=== PATIENT | female | born 1960 | race Native Hawaiian/Other Pacific Islander ===

== ENCOUNTER 2022-05-29 13:03 | Emergency (ER) | payer OTHER ==
[2022-05-29] MEDS ORDERED: DUONEB 0.5-3 MG/3 ml Neb IH ONE ×2 (13:08→13:17)
[2022-05-29] MEDS ORDERED: Ativan 2 MG/1 ML VIAL ONE ×2 (13:11→17:09)
[2022-05-29] MEDS ORDERED: Ativan 2 MG/1 ML VIAL IV ONE ×3 (13:11→17:10)
[2022-05-29 13:24] LABS: Absolute Neutrophil Ct (ANC) 10.14 x10^3/uL (1.4-6.9); Basophil (Absolute #) 0.03 x10^3/uL (0-0.4); Eosinophil (Absolute #) 0 x10^3/uL (0-0.5); Hematocrit 42.3 % (35-47); Hemoglobin 15.3 g/dL (12.0-16.0); Lymphocyte (Absolute #) 0.97 x10^3/uL (1.0-4.6); Lymphocytes % 7.4 % (24.0-44.0); Mean Cell Volume 83.8 fL (78-100); Mean Corpuscular Hemoglobin 30.3 pg (26-32); Mean Corpuscular Hgb Concent. 36.2 g/dL (32-36); Mean Platelet Volume 10.2 fL (7.5-11.0); Monocyte (Absolute #) 1.92 x10^3/uL (0.0-1.3); Monocytes % 14.6 % (0.0-12.0); Neutrophil % 77.3 % (36.0-66.0); Platelet Count 254 x10^3/uL (150-450); Red Blood Count 5.05 x10^6/uL (4.1-5.4); White Blood Count 13.1 x10^3/uL (4.0-10.5)
[2022-05-29 13:29] LABS: A-aADO2 162; ABG HEMOGLOBIN 14.6; ABG POTASSIUM 3.4 (3.5-5.1); ABG SITE RIGHT RADIAL; ARTERIAL BLD GAS O2 SATURATION 99.3 % (95-100); ARTERIAL BLOOD GAS BASE EXCESS -3.6 (-2.0-2.0); ARTERIAL BLOOD GAS FIO2 50 %; ARTERIAL BLOOD GAS PCO2 26 mmHg (35-45); ARTERIAL BLOOD GAS PO2 162 mmHg (75-100); ARTERIAL BLOOD GAS pH 7.46 (7.35-7.45); CARBOXYHEMOGLOBIN 0.8 % THgb (0.0-6.9); HCO3- 18.5 (22-28); HGB O2 SAT 97.4 g/dF (94-100); Methhemoglobin 1.1 % (1.4-1.5)
[2022-05-29] MEDS ORDERED: Sodium Chloride 0.9% 1000 ML 1,000 ML IV STA (13:32)
[2022-05-29 13:34] LABS: Bacteria MANY /HPF (NEGATIVE); Epithelial Cells RARE /HPF (FEW); RBC 26-50 /HPF (0-2); WBC >100 /HPF (0-5)
[2022-05-29] MEDS ORDERED: Sodium Chloride 0.9% 1000 ML 1,000 ML ONE ×2 (13:34→15:57)
[2022-05-29 13:35] LABS: Appearance SLIGHTLY CLOUDY (CLEAR); Bilirubin NEGATIVE (NEGATIVE); Dipstick done @ ? MAIN LAB; Glucose NEGATIVE (NEGATIVE); Ketones SMALL-15 (NEGATIVE); Nitrite NEGATIVE (NEGATIVE); Protein,Urine Dip TRACE (Negative); RBC SMALL Ery/ul (0-5); Specific Gravity 1.025 (1.005-1.025); Urobilinogen 0.2 mg/dL (0-1)
[2022-05-29 13:36] LABS: Urine Cultured Indicated? YES
[2022-05-29 13:45] LABS: Amphetamine,Urine NEGATIVE (NEGATIVE); Barbiturate,Urine NEGATIVE (NEGATIVE); Benzodiazepine,Urine NEGATIVE (NEGATIVE); Cocaine,Urine NEGATIVE (NEGATIVE); Methadone,Urine NEGATIVE (NEGATIVE); Opiate,Urine NEGATIVE (NEGATIVE); PCP,Urine NEGATIVE (NEGATIVE); THC,Urine NEGATIVE (NEGATIVE)
[2022-05-29 13:49] LABS: ALBUMIN 4.3 g/dL (3.5-5.0); ALKALINE PHOSPHATASE 78 U/L (38-126); ANION GAP 16.4 MEQ/L (5-15); BLOOD UREA NITROGEN 19 mg/dL (7-17); CHLORIDE 78 mmol/L (98-107); Calcium 8.7 mg/dL (8.4-10.2); Carbon Dioxide 25 mmol/L (22-30); Creatinine 1 0.87 mg/dL (0.52-1.04); EST GLOMERULAR FILTRATION RATE > 60.0 ML/MIN; Glucose 109 mg/dL (74-106); MAGNESIUM 1.7 mg/dL (1.6-2.3); NT PRO BNP 16700 pg/mL (0-900); Potassium 4.2 mmol/L (3.5-5.1); SGOT/AST 156 U/L (14-36); Total Protein 7.1 g/dL (6.3-8.2)
[2022-05-29 13:53] LABS: SGPT/ALT 60 U/L (0-35)
[2022-05-29 14:00] LABS: SODIUM 116 mmol/L (137-145)
[2022-05-29] MEDS ORDERED: PIPERACILLIN/TAZOBACTAM 3.375 GM in Sodium Chloride 100ML MINI-BAG PLUS 100 ML IV ONE (14:33)
--- NOTE | 2022-05-29 14:33 | XRAY ---
Indication: Status post fall. Unresponsive. Multiple contiguous axial images obtained through the head without contrast. Comparison: None Age-appropriate global atrophy and minimal periventricular degenerative micro-ischemia bilaterally. Incidental physiologic basal ganglia calcifications bilaterally. No acute intracranial hemorrhage, abnormal extra-axial fluid collection, or mass effect. Fourth ventricle is midline without hydrocephalus. Zhu-white matter differentiation preserved. Bony calvarium intact. Visualized paranasal sinuses and mastoid air cells are clear. Impression: Nonacute senile brain.
--- NOTE | 2022-05-29 14:35 | XRAY ---
Indication: Status post fall. Unresponsive. Multiple contiguous axial images obtained through the cervical spine. Sagittal and coronal reformatted images obtained. Comparison: None Axial images negative for acute fracture, suspicious bony lesions, or spinal canal stenosis. Minimal C6-C7 degenerative endplate spurring. Facets are symmetric. Sagittal and coronal reformatted images demonstrates normal alignment. Minimal C6-C7 disc space narrowing. No acute compression fracture, subluxation, or jumped facet. Normal appearing cranial cervical junction. Visualized noncontrasted soft tissues demonstrates mild bilateral carotid calcifications. CT head and CT chest reported separately. Impression: C6-7 C7 degenerative changes. Remaining CT cervical spine is negative.
--- NOTE | 2022-05-29 14:40 | XRAY ---
Indication: Status post fall. Unresponsive. Multiple contiguous axial images obtained through the chest without contrast. Comparison: None Mild diffuse respiration artifact degrades study. There is moderate bilateral pleural effusions with moderate bilateral compressive atelectasis. Heart is borderline enlarged with aortic valve calcifications. No pericardial effusion/thickening. Aorta is mildly arteriosclerotic without aneurysm. Tiny left infrahilar calcified nodes. No pathologic mediastinal lymphadenopathy. Small amount of fluid in the mid esophagus presumed from gastroesophageal reflux. Bony thorax intact with minimal degenerative changes throughout the spine. Limited upper abdomen grossly unremarkable. Impression: 1. Diffuse respiration artifact. 2. Borderline cardiomegaly with bilateral pleural effusions. Rule out cardiac decompensation/CHF. 3. Incidental GERD and old granulomatous disease.
[2022-05-29 14:44] LABS: Slide Review 1 YES
[2022-05-29] MEDS ORDERED: PIPERACILLIN/TAZOBACTAM IV ONE (14:58)
[2022-05-29] MEDS ORDERED: Sodium Chloride 100ML MINI-BAG PLUS 100 ML IV ONE (14:58)
[2022-05-29] MEDS ORDERED: Ketamine HCl 50 MG/ML IV ONE (15:52)
[2022-05-29] MEDS ORDERED: FEVERALL 650 MG PR ONE (15:56)
[2022-05-29] MEDS ORDERED: FEVERALL 650 MG ONE (15:57)
[2022-05-29] MEDS ORDERED: Sodium Chloride 0.9% 1000 ML 1,000 ML IV SCH (16:00)
[2022-05-29 16:12] VITALS: O2SAT 97
--- NOTE | 2022-05-29 16:28 | ERPHSYRPT ---
- History of Present Illness Time Seen by Provider: 05/29/22 13:12 Source: family, EMS Exam Limitations: clinical condition Patient Subjective Stated Complaint: Patient arrived physically restrained with a reduced mental status; unable to state a complaint. Reported c/o by medical personel in the ambulance is Covid+, increased SOB, altered mental status. Triage Nursing Assessment: Patient arrived by ambulance. Patient has BUE in soft restraints upon arrival and her BLE around moving about in the bed. Patient's head moving back and forth on the pillow. Patient spoke of few words that staff were unable to understand. She is SOB with labored breathing noted. Patient wearing a non-rebreather mask upon arrival. Unable to obtain vitals at this time due to patient inability to hold still. Attempted remove soft restraints upon arrival but patient began trying to remove her oxygen and pull out her IV. Patient unaware of her surroundings and staff unable to reorient her successfully at this time. Physician History: 62 years old female with no known medical problem or taking any medications is brought in the ER from home with chief complaint of difficulty breathing/altered mental status. As per report patient was diagnosed with COVID-19 4 days ago, was getting some confusion yesterday and this morning she was not acting herself at all. Patient oxygen saturation was 84% on room air, placed on nonrebreather and improved to upper 90s. Patient is probably falling and has contusion right forehead, placed in a c-collar by EMS and currently she is thrashing everywhere with no coordinated movements. Patient awake and talking which does not make any sense. History is limited. Timing/Duration: day(s) (2), gradual onset, worse Severity of Dyspnea-Max: severe Severity of Dyspnea-Current: moderate Possible Cause: illness exposure Allergies/Adverse Reactions: No Known Drug Allergies Allergy (Verified 05/29/22 13:25) Home Medications: No Reportable Medications [No Reported Medications] 05/29/22 [History] Travel Risk - International Travel Have you traveled outside of the country in past 3 weeks: No - Coronavirus Screening Are you exhibiting any of the following symptoms?: Yes Symptoms: Shortness of Breath Close contact with a COVID-19 positive Pt in past 14-21 Days: No - Vaccine Status Have you recieved a Covid-19 vaccination: No (Unknown) Facilities Management Executive: Unknown - Vaccination Dates Dates if Unknown: ? - Review of Systems All Other Systems: Unable due to condition - Past Medical History Pertinent Past Medical History: No Other Medical History: Patient is still unable to answer questions at this time. Patient's son is here and states that patient has no real medical history. No allergies and no current medications at home. - Past Surgical History Past Surgical History: No Other Surgical History: Patient is still unable to answer questions at this time. Patient's son is here and states that patient has no real medical history. - Social History Smoking Status: Unknown if ever smoked - Nursing Vital Signs Nursing Vital Signs: Initial Vital Signs Pulse Rate 140 H 05/29/22 13:05 Respiratory Rate 31 H 05/29/22 13:05 Pain Scale Pain Intensity 0 - Physical Exam General Appearance: moderate distress, alert Eye Exam: eyes nml inspection Ears, Nose, Throat Exam: pharyngeal erythema, No abnormal TM (R), No abnormal TM (L) Neck Exam: normal inspection, non-tender, supple Respiratory Exam: diminished breath sounds, crackles/rales Cardiovascular/Chest Exam: normal heart sounds, tachycardia Abdominal/Gastrointestinal Exam: soft, normal bowel sounds, No tenderness Extremity Exam: non-tender, normal range of motion Neurologic Exam: alert, No oriented x 3, No cooperative, No normal mood/affect, No motor deficits Skin Exam: normal color SpO2 Interpretation: hypoxic, O2 applied SpO2: 97 O2 Delivery: Non-rebreather - Course EKG Interpreted by Me: RATE ([id number]), Sinus Tach, Left [place] Deviation, prolonged QT interval, Non-specific ST Changes Ordered Tests: Active Orders 24 hr Category Date Time Status Metal Trimmer STAT Care 05/29/22 13:21 Active Catheter-Bet[place] STAT Care 05/29/22 13:09 Active EKG-ER Only STAT Care 05/29/22 13:21 Active IV Insertion STAT Care 05/29/22 13:20 Active IV Insertion-2nd Peripheral STAT Care 05/29/22 13:20 Active CERVICAL SPINE WO CONTRAST [CT] Stat Exams 05/29/22 13:08 Completed CHEST WITH CONTRAST [CT] Stat Exams 05/29/22 16:53 Ordered CHEST WITHOUT CONTRAST [CT] Stat Exams 05/29/22 13:08 Completed HEAD WITHOUT CONTRAST [CT] Stat Exams 05/29/22 13:08 Completed ARTERIAL BLOOD GASES Stat Lab 05/29/22 13:26 Completed BLOOD CULTURE Stat Lab 05/29/22 13:28 Received BMP Stat Lab 05/29/22 16:05 Received CBC W DIFF Stat Lab 05/29/22 13:10 Completed CMP Stat Lab 05/29/22 13:10 Completed CULTURE,URINE Stat Lab 05/29/22 13:10 Received D-DIMER QUANTITATIVE Stat Lab 05/29/22 16:18 Completed ETHYL ALCOHOL Stat Lab 05/29/22 13:10 Completed Lactic Acid Stat Lab 05/29/22 13:26 Completed Lactic Acid Stat Lab 05/29/22 15:30 Completed MAGNESIUM Stat Lab 05/29/22 13:10 Completed NT PRO BNP Stat Lab 05/29/22 13:10 Completed PROCALCITONIN Stat Lab 05/29/22 13:10 Completed TROPONIN Q4H Lab 05/29/22 13:10 Completed TROPONIN Q4H Lab 05/29/22 16:30 Completed TROPONIN Q4H Lab 05/29/22 21:15 Ordered UA W/RFX CULTURE Stat Lab 05/29/22 13:10 Completed Urine Triage Profile Stat Lab 05/29/22 13:10 Completed Respiratory Therapy Assessment DAILY RT 05/29/22 14:11 Active Medication Summary Generic Name Dose Route Start Last Admin Trade Name Freq PRN Reason Stop Dose Admin Sodium Chloride 1,000 mls @ 100 mls/hr 05/29/22 16:00 05/29/22 15:59 Sodium Chloride 0.9% 1000 Ml IV 06/28/22 15:59 100 mls/hr .Q10H JASMIN Administration Discontinued Medications Generic Name Dose Route Start Last Admin Trade Name Freq PRN Reason Stop Dose Admin Acetaminophen 650 mg 05/29/22 15:56 05/29/22 15:59 Acetaminophen 650 Mg Supp.Rect MN 05/29/22 15:57 650 mg STAT ONE Administration Acetaminophen Confirm 05/29/22 15:57 Acetaminophen 650 Mg Supp.Rect Administered 05/29/22 15:58 Dose 650 mg .ROUTE .STK-MED ONE Albuterol/Ipratropium 3 ml 05/29/22 13:08 05/29/22 13:20 Ipratropium/Albuterol Sulfate 3 Ml Ampul.Neb IH 05/29/22 13:09 3 ml STAT ONE Administration Albuterol/Ipratropium Confirm 05/29/22 13:17 Ipratropium/Albuterol Sulfate 3 Ml Ampul.Neb Administered 05/29/22 13:18 Dose 3 ml IH .STK-MED ONE Sodium Chloride 1,000 mls @ 999 mls/hr 05/29/22 13:32 05/29/22 14:38 Sodium Chloride 0.9% 1000 Ml IV 05/29/22 14:32 Infused .Q1H1M STA Infusion Sodium Chloride Confirm 05/29/22 13:34 Sodium Chloride 0.9% 1000 Ml Administered 05/29/22 13:35 Dose 1,000 mls @ ud .ROUTE .STK-MED ONE Piperacillin Sod/Tazobactam 100 mls @ 200 mls/hr 05/29/22 14:33 05/29/22 14:58 Sod 3.375 gm/ Sodium Chloride IV 05/29/22 15:02 200 mls/hr STAT ONE Administration Sodium Chloride Confirm 05/29/22 14:58 Sodium Chloride 100ml Mini-Bag Plus Administered 05/29/22 14:59 Dose 100 mls @ ud IV .STK-MED ONE Ketamine HCl 25 mg 05/29/22 15:52 05/29/22 14:08 Ketamine Hcl 50 Mg/Ml IV 05/29/22 15:53 25 mg STAT ONE Administration Lorazepam 1 mg 05/29/22 13:11 05/29/22 13:59 Lorazepam 2 Mg/1 Ml 2 Mg Vial IV 05/29/22 13:12 Not Given STAT ONE Lorazepam Confirm 05/29/22 13:11 Lorazepam 2 Mg/1 Ml 2 Mg Vial Administered 05/29/22 13:12 Dose 2 mg .ROUTE .STK-MED ONE Lorazepam 2 mg 05/29/22 13:59 05/29/22 13:13 Lorazepam 2 Mg/1 Ml 2 Mg Vial IV 05/29/22 14:00 2 mg STAT ONE Administration Lorazepam Confirm 05/29/22 17:09 Lorazepam 2 Mg/1 Ml 2 Mg Vial Administered 05/29/22 17:10 Dose 2 mg .ROUTE .STK-MED ONE Piperacillin Sod/Tazobactam Sod Confirm 05/29/22 14:58 Piperacillin/Tazobactam Sodium 3.375 Gm Vial Administered 05/29/22 14:59 Dose 3.375 gm IV .STK-MED ONE Lab/Rad Data: Laboratory Result Diagrams 05/29/22 13:10 05/29/22 13:10 Laboratory Results 05/29/22 05/29/22 05/29/22 Range/Units 16:30 16:18 15:30 WBC (4.0-10.5) x10^3/uL RBC (4.1-5.4) x10^6/uL Hgb (12.0-16.0) g/dL Hct (35-47) % MCV (78-100) fL MCH (26-32) pg MCHC (32-36) g/dL RDW (11.5-14.0) % Plt Count (150-450) x10^3/uL MPV (7.5-11.0) fL Gran % (36.0-66.0) % Immature Gran % (Auto) (0.00-0.4) % Nucleat RBC Rel Count (0.00-0.1) % Eos # (Auto) (0-0.5) x10^3/uL Immature Gran # (Auto) (0.00-0.03) x10^3u/L Absolute Lymphs (auto) (1.0-4.6) x10^3/uL Absolute Monos (auto) (0.0-1.3) x10^3/uL Absolute Nucleated RBC (0.00-0.01) x10^3u/L Lymphocytes % (24.0-44.0) % Monocytes % (0.0-12.0) % Eosinophils % (0.00-5.0) % Basophils % (0.0-0.4) % Absolute Granulocytes (1.4-6.9) x10^3/uL Basophils # (0-0.4) x10^3/uL D-Dimer 1.99 H* (0.0-0.50) mg/L Puncture Site pCO2 (35-45) mmHg pO2 (75-100) mmHg Base Excess (-2.0-2.0) O2 Saturation (94-100) g/dF ABG pH (7.35-7.45) ABG HCO3 (22-28) ABG O2 Sat (Measured) (95-100) % Raphael Test A-a Gradient a/A Ratio Hemoglobin Carboxyhemoglobin (0.0-6.9) % THgb Methemoglobin (1.4-1.5) % Temperature C POC O2 Flow Rate % Sodium (137-145) mmol/L Potassium (3.5-5.1) mmol/L Chloride (98-107) mmol/L Carbon Dioxide (22-30) mmol/L Anion Gap (5-15) MEQ/L BUN (7-17) mg/dL Creatinine (0.52-1.04) mg/dL Estimated GFR ML/MIN Glucose (74-106) mg/dL Lactic Acid 1.7 (0.4-2.0) Calcium (8.4-10.2) mg/dL Magnesium (1.6-2.3) mg/dL Total Bilirubin (0.2-1.3) mg/dL AST (14-36) U/L ALT (0-35) U/L Alkaline Phosphatase (38-126) U/L Troponin I 0.230 H* (0.000-0.034) ng/mL NT-Pro-B Natriuret Pep (0-900) pg/mL Serum Total Protein (6.3-8.2) g/dL Albumin (3.5-5.0) g/dL Procalcitonin (0.030-0.080) ng/mL Urinalys Dipstick Clnc Urine Color (YELLOW) Urine Appearance (CLEAR) Urine pH (5-6) Ur Specific [place] (1.005-1.025) POC Urine Protein Conf (Negative) Urine Ketones (NEGATIVE) Urine Nitrite (NEGATIVE) Urine Bilirubin (NEGATIVE) Urine Urobilinogen (0-1) mg/dL Urine Leukocytes (NEGATIVE) Urine WBC (Auto) (0-5) /HPF Urine RBC (Auto) (0-2) /HPF U Epithel Cells (Auto) (FEW) /HPF Urine Bacteria (Auto) (NEGATIVE) /HPF Urine RBC (0-5) Josue/ul Ur Culture Indicated? Urine Glucose (NEGATIVE) mg/dL Urine Opiates Level (NEGATIVE) Ur Methadone (NEGATIVE) Urine Barbiturates (NEGATIVE) Ur Phencyclidine (PCP) (NEGATIVE) Urine Amphetamine (NEGATIVE) U Benzodiazepine Level (NEGATIVE) Urine Cocaine (NEGATIVE) Urine Marijuana (THC) (NEGATIVE) Ethyl Alcohol (0-10) mg/dL Influenza Type A Ag (NEGATIVE) Influenza Type B Ag (NEGATIVE) RSV (PCR) (Negative) SARS-CoV-2 (PCR) (NEGATIVE) Slides for Path Review 05/29/22 05/29/22 05/29/22 Range/Units 14:00 13:26 13:10 WBC (4.0-10.5) x10^3/uL RBC (4.1-5.4) x10^6/uL Hgb (12.0-16.0) g/dL Hct (35-47) % MCV (78-100) fL MCH (26-32) pg MCHC (32-36) g/dL RDW (11.5-14.0) % Plt Count (150-450) x10^3/uL MPV (7.5-11.0) fL Gran % (36.0-66.0) % Immature Gran % (Auto) (0.00-0.4) % Nucleat RBC Rel Count (0.00-0.1) % Eos # (Auto) (0-0.5) x10^3/uL Immature Gran # (Auto) (0.00-0.03) x10^3u/L Absolute Lymphs (auto) (1.0-4.6) x10^3/uL Absolute Monos (auto) (0.0-1.3) x10^3/uL Absolute Nucleated RBC (0.00-0.01) x10^3u/L Lymphocytes % (24.0-44.0) % Monocytes % (0.0-12.0) % Eosinophils % (0.00-5.0) % Basophils % (0.0-0.4) % Absolute Granulocytes (1.4-6.9) x10^3/uL Basophils # (0-0.4) x10^3/uL D-Dimer (0.0-0.50) mg/L Puncture Site RIGHT RADIAL pCO2 26 L (35-45) mmHg pO2 162 H* (75-100) mmHg Base Excess -3.6 L (-2.0-2.0) O2 Saturation 97.4 (94-100) g/dF ABG pH 7.46 H (7.35-7.45) ABG HCO3 18.5 L (22-28) ABG O2 Sat (Measured) 99.3 (95-100) % Raphael Test NOT APPLICABLE A-a Gradient 162 a/A Ratio 0.50 Hemoglobin 14.6 Carboxyhemoglobin 0.8 (0.0-6.9) % THgb Methemoglobin 1.1 L (1.4-1.5) % Temperature 37.0 C POC O2 Flow Rate 50 % Sodium (137-145) mmol/L Potassium 3.4 L (3.5-5.1) mmol/L Chloride (98-107) mmol/L Carbon Dioxide (22-30) mmol/L Anion Gap (5-15) MEQ/L BUN (7-17) mg/dL Creatinine (0.52-1.04) mg/dL Estimated GFR ML/MIN Glucose (74-106) mg/dL Lactic Acid 3.0 H (0.4-2.0) Calcium (8.4-10.2) mg/dL Magnesium (1.6-2.3) mg/dL Total Bilirubin (0.2-1.3) mg/dL AST (14-36) U/L ALT (0-35) U/L Alkaline Phosphatase (38-126) U/L Troponin I (0.000-0.034) ng/mL NT-Pro-B Natriuret Pep (0-900) pg/mL Serum Total Protein (6.3-8.2) g/dL Albumin (3.5-5.0) g/dL Procalcitonin (0.030-0.080) ng/mL Urinalys Dipstick Clnc Urine Color (YELLOW) Urine Appearance (CLEAR) Urine pH (5-6) Ur Specific [place] (1.005-1.025) POC Urine Protein Conf (Negative) Urine Ketones (NEGATIVE) Urine Nitrite (NEGATIVE) Urine Bilirubin (NEGATIVE) Urine Urobilinogen (0-1) mg/dL Urine Leukocytes (NEGATIVE) Urine WBC (Auto) (0-5) /HPF Urine RBC (Auto) (0-2) /HPF U Epithel Cells (Auto) (FEW) /HPF Urine Bacteria (Auto) (NEGATIVE) /HPF Urine RBC (0-5) Josue/ul Ur Culture Indicated? Urine Glucose (NEGATIVE) mg/dL Urine Opiates Level (NEGATIVE) Ur Methadone (NEGATIVE) Urine Barbiturates (NEGATIVE) Ur Phencyclidine (PCP) (NEGATIVE) Urine Amphetamine (NEGATIVE) U Benzodiazepine Level (NEGATIVE) Urine Cocaine (NEGATIVE) Urine Marijuana (THC) (NEGATIVE) Ethyl Alcohol < 10 (0-10) mg/dL Influenza Type A Ag NEGATIVE (NEGATIVE) Influenza Type B Ag NEGATIVE (NEGATIVE) RSV (PCR) NEGATIVE (Negative) SARS-CoV-2 (PCR) POSITIVE A (NEGATIVE) Slides for Path Review 05/29/22 05/29/22 05/29/22 Range/Units 13:10 13:10 13:10 WBC (4.0-10.5) x10^3/uL RBC (4.1-5.4) x10^6/uL Hgb (12.0-16.0) g/dL Hct (35-47) % MCV (78-100) fL MCH (26-32) pg MCHC (32-36) g/dL RDW (11.5-14.0) % Plt Count (150-450) x10^3/uL MPV (7.5-11.0) fL Gran % (36.0-66.0) % Immature Gran % (Auto) (0.00-0.4) % Nucleat RBC Rel Count (0.00-0.1) % Eos # (Auto) (0-0.5) x10^3/uL Immature Gran # (Auto) (0.00-0.03) x10^3u/L Absolute Lymphs (auto) (1.0-4.6) x10^3/uL Absolute Monos (auto) (0.0-1.3) x10^3/uL Absolute Nucleated RBC (0.00-0.01) x10^3u/L Lymphocytes % (24.0-44.0) % Monocytes % (0.0-12.0) % Eosinophils % (0.00-5.0) % Basophils % (0.0-0.4) % Absolute Granulocytes (1.4-6.9) x10^3/uL Basophils # (0-0.4) x10^3/uL D-Dimer (0.0-0.50) mg/L Puncture Site pCO2 (35-45) mmHg pO2 (75-100) mmHg Base Excess (-2.0-2.0) O2 Saturation (94-100) g/dF ABG pH (7.35-7.45) ABG HCO3 (22-28) ABG O2 Sat (Measured) (95-100) % Raphael Test A-a Gradient a/A Ratio Hemoglobin Carboxyhemoglobin (0.0-6.9) % THgb Methemoglobin (1.4-1.5) % Temperature C POC O2 Flow Rate % Sodium (137-145) mmol/L Potassium (3.5-5.1) mmol/L Chloride (98-107) mmol/L Carbon Dioxide (22-30) mmol/L Anion Gap (5-15) MEQ/L BUN (7-17) mg/dL Creatinine (0.52-1.04) mg/dL Estimated GFR ML/MIN Glucose (74-106) mg/dL Lactic Acid (0.4-2.0) Calcium (8.4-10.2) mg/dL Magnesium (1.6-2.3) mg/dL Total Bilirubin (0.2-1.3) mg/dL AST (14-36) U/L ALT (0-35) U/L Alkaline Phosphatase (38-126) U/L Troponin I (0.000-0.034) ng/mL NT-Pro-B Natriuret Pep (0-900) pg/mL Serum Total Protein (6.3-8.2) g/dL Albumin (3.5-5.0) g/dL Procalcitonin 0.790 H (0.030-0.080) ng/mL Urinalys Dipstick Clnc MAIN LAB Urine Color YELLOW (YELLOW) Urine Appearance SLIGHTLY CLOUDY A (CLEAR) Urine pH 6.0 (5-6) Ur Specific [place] 1.025 (1.005-1.025) POC Urine Protein Conf TRACE A (Negative) Urine Ketones SMALL-15 A (NEGATIVE) Urine Nitrite NEGATIVE (NEGATIVE) Urine Bilirubin NEGATIVE (NEGATIVE) Urine Urobilinogen 0.2 (0-1) mg/dL Urine Leukocytes MODERATE A (NEGATIVE) Urine WBC (Auto) >100 A (0-5) /HPF Urine RBC (Auto) 26-50 A (0-2) /HPF U Epithel Cells (Auto) RARE (FEW) /HPF Urine Bacteria (Auto) MANY A (NEGATIVE) /HPF Urine RBC SMALL A (0-5) Josue/ul Ur Culture Indicated? YES Urine Glucose NEGATIVE (NEGATIVE) mg/dL Urine Opiates Level NEGATIVE (NEGATIVE) Ur Methadone NEGATIVE (NEGATIVE) Urine Barbiturates NEGATIVE (NEGATIVE) Ur Phencyclidine (PCP) NEGATIVE (NEGATIVE) Urine Amphetamine NEGATIVE (NEGATIVE) U Benzodiazepine Level NEGATIVE (NEGATIVE) Urine Cocaine NEGATIVE (NEGATIVE) Urine Marijuana (THC) NEGATIVE (NEGATIVE) Ethyl Alcohol (0-10) mg/dL Influenza Type A Ag (NEGATIVE) Influenza Type B Ag (NEGATIVE) RSV (PCR) (Negative) SARS-CoV-2 (PCR) (NEGATIVE) Slides for Path Review 05/29/22 05/29/22 05/29/22 Range/Units 13:10 13:10 13:10 WBC 13.1 H (4.0-10.5) x10^3/uL RBC 5.05 (4.1-5.4) x10^6/uL Hgb 15.3 (12.0-16.0) g/dL Hct 42.3 (35-47) % MCV 83.8 (78-100) fL MCH 30.3 (26-32) pg MCHC 36.2 H (32-36) g/dL RDW 12.0 (11.5-14.0) % Plt Count 254 (150-450) x10^3/uL MPV 10.2 (7.5-11.0) fL Gran % 77.3 H (36.0-66.0) % Immature Gran % (Auto) 0.5 H (0.00-0.4) % Nucleat RBC Rel Count 0.0 (0.00-0.1) % Eos # (Auto) 0 (0-0.5) x10^3/uL Immature Gran # (Auto) 0.06 H (0.00-0.03) x10^3u/L Absolute Lymphs (auto) 0.97 L (1.0-4.6) x10^3/uL Absolute Monos (auto) 1.92 H (0.0-1.3) x10^3/uL Absolute Nucleated RBC 0.00 (0.00-0.01) x10^3u/L Lymphocytes % 7.4 L (24.0-44.0) % Monocytes % 14.6 H (0.0-12.0) % Eosinophils % 0.0 (0.00-5.0) % Basophils % 0.2 (0.0-0.4) % Absolute Granulocytes 10.14 H (1.4-6.9) x10^3/uL Basophils # 0.03 (0-0.4) x10^3/uL D-Dimer (0.0-0.50) mg/L Puncture Site pCO2 (35-45) mmHg pO2 (75-100) mmHg Base Excess (-2.0-2.0) O2 Saturation (94-100) g/dF ABG pH (7.35-7.45) ABG HCO3 (22-28) ABG O2 Sat (Measured) (95-100) % Raphael Test A-a Gradient a/A Ratio Hemoglobin Carboxyhemoglobin (0.0-6.9) % THgb Methemoglobin (1.4-1.5) % Temperature C POC O2 Flow Rate % Sodium 116 L* (137-145) mmol/L Potassium 4.2 (3.5-5.1) mmol/L Chloride 78 L (98-107) mmol/L Carbon Dioxide 25 (22-30) mmol/L Anion Gap 16.4 H (5-15) MEQ/L BUN 19 H (7-17) mg/dL Creatinine 0.87 (0.52-1.04) mg/dL Estimated GFR > 60.0 ML/MIN Glucose 109 H (74-106) mg/dL Lactic Acid (0.4-2.0) Calcium 8.7 (8.4-10.2) mg/dL Magnesium 1.7 (1.6-2.3) mg/dL Total Bilirubin 0.90 (0.2-1.3) mg/dL AST 156 H (14-36) U/L ALT 60 H (0-35) U/L Alkaline Phosphatase 78 (38-126) U/L Troponin I 0.227 H* (0.000-0.034) ng/mL NT-Pro-B Natriuret Pep 94596 H (0-900) pg/mL Serum Total Protein 7.1 (6.3-8.2) g/dL Albumin 4.3 (3.5-5.0) g/dL Procalcitonin (0.030-0.080) ng/mL Urinalys Dipstick Clnc Urine Color (YELLOW) Urine Appearance (CLEAR) Urine pH (5-6) Ur Specific [place] (1.005-1.025) POC Urine Protein Conf (Negative) Urine Ketones (NEGATIVE) Urine Nitrite (NEGATIVE) Urine Bilirubin (NEGATIVE) Urine Urobilinogen (0-1) mg/dL Urine Leukocytes (NEGATIVE) Urine WBC (Auto) (0-5) /HPF Urine RBC (Auto) (0-2) /HPF U Epithel Cells (Auto) (FEW) /HPF Urine Bacteria (Auto) (NEGATIVE) /HPF Urine RBC (0-5) Josue/ul Ur Culture Indicated? Urine Glucose (NEGATIVE) mg/dL Urine Opiates Level (NEGATIVE) Ur Methadone (NEGATIVE) Urine Barbiturates (NEGATIVE) Ur Phencyclidine (PCP) (NEGATIVE) Urine Amphetamine (NEGATIVE) U Benzodiazepine Level (NEGATIVE) Urine Cocaine (NEGATIVE) Urine Marijuana (THC) (NEGATIVE) Ethyl Alcohol (0-10) mg/dL Influenza Type A Ag (NEGATIVE) Influenza Type B Ag (NEGATIVE) RSV (PCR) (Negative) SARS-CoV-2 (PCR) (NEGATIVE) Slides for Path Review YES - Progress Progress: improved, re-examined Air Movement: fair Progress Note: 05/29/22 16:19 62-year-old is evaluated for hypoxia with respiratory distress and fall. Patient is placed on nonrebreather initially followed by 6 L and currently on 3 L with saturation around 96%. Patient is confused, moving all 4 extremities with no gross motor deficit. Because of her history of fall, CT head cervical spines are obtained and negative for any acute trauma related findings, c-collar is removed. CT chest without contrast showed cardiomegaly with pleural effusion suggesting CHF. Patient was initially tachycardic but improved after fluid bolus and her pressure is still in the 90s. Work-up showed white count of 13, lactate of 3.0 with a procalcitonin 1.79, given a dose of Zosyn. Patient does have UTI. Chemistry showed sodium of 116, will continue with gentle hydration with normal saline since her blood pressure is on the lower side. Patient initial troponin 0.[address] elevations and has a temperature of 101. I believe it is secondary to respiratory failure driven versus CHF. Patient is protecting her airway, do not think needs to be intubated. Patient was initially very agitated and thrashing, was given Ativan and ketamine to calm her down. Discussed with Dr. [facility]an [facility], reviewed history, work- up, agreed with transfer. also recommended obtaining D-dimer and if positive CTA chest which would be obtained. Plan discussed with patient's son who understand and agrees with it. 05/29/22 17:32 Patient has elevated D-dimer, she is still confused and does not lie still. I have given her Ativan and try to obtain CTA but she could not tolerate. I have discussed with Dr. Sra moy [facility] [place] hospital[place], reviewed CTA results and agreed with giving a dose of Lovenox and once she is better they will obtain CTA there. Patient would be transferred. Blood Culture(s) Obtained: Yes Antibiotics given: Yes Discussed with : Other Counseled pt/family regarding: lab results, diagnosis, rad results - Departure Departure Disposition: Transfer Clinical Impression: Sepsis, COVID-19, Hyponatremia, CHF (congestive heart failure), Acute UTI, Elevated troponin, Altered mental status Condition: Fair Critical Care Time: Yes Critical Care Time(excluding separately billable procedures): Critical 30-74 mins Referrals: RAMIN FLORES [Primary Care Provider] - Follow up/PCP as directed Instructions: Heart Failure
[2022-05-29 16:55] LABS: INFLUENZA A NEGATIVE (NEGATIVE); INFLUENZA B NEGATIVE (NEGATIVE); RESPIRATORY SYNCTIAL VIRUS NEGATIVE (Negative)
[2022-05-29 17:06] LABS: SARS-CoV-2 Xpert Express POSITIVE (NEGATIVE)
[2022-05-29] MEDS ORDERED: ENOXAPARIN SODIUM SQ ONE ×2 (17:32→17:55)
[2022-05-29 18:09] LABS: ANION GAP 9.7 MEQ/L (5-15); BLOOD UREA NITROGEN 18 mg/dL (7-17); CHLORIDE 85 mmol/L (98-107); Calcium 7.6 mg/dL (8.4-10.2); Carbon Dioxide 25 mmol/L (22-30); Creatinine 1 0.71 mg/dL (0.52-1.04); EST GLOMERULAR FILTRATION RATE > 60.0 ML/MIN; Glucose 97 mg/dL (74-106); Potassium 3.9 mmol/L (3.5-5.1)
[2022-05-29 18:14] LABS: SODIUM 116 mmol/L (137-145)
[2022-05-29 18:18] VITALS: BP 78/50; PULSE 78
== END 2022-05-29 18:20 | disposition short-term general hospital (02) ==
LOC: ED 13:03
DX: A41.89 Other specified sepsis (principal); U07.1 COVID-19; N39.0 Urinary tract infection, site not specified; E87.1 Hypo-osmolality and hyponatremia; I50.9 Heart failure, unspecified; R77.8 Other specified abnormalities of plasma proteins; R41.82 Altered mental status, unspecified; R06.00 Dyspnea, unspecified
CPT/HCPCS: 0241U; 36000; 36415; 36600; 51702; 70450; 71250; 72125; 80048; 80053; 80307; 81015; 82375; 82803; 83605; 83735; 83880; 84145; 84484; 85025; 85379; 87040; 87077; 87086; 87186; 93005; 93041; 94640; 96365; 96372; 96374; 96375; 96376; 99285; 99291; G0480; J1650; J2060; A9270-GY